=== PATIENT | female | born 1925 | race Caucasian/White ===

== ENCOUNTER → 2016-08-17 | Outpatient (CLI) | payer OTHER, BC ==
[~2016-08-17] MED LIST: ALENDRONATE SOD70 MG PO; ASPIRIN325 MG PO; ATROVENT 00.5 MG/2.5 IH; CALCIUM 600 +1 EACH PO; COLACE100 MG PO; COMBIGAN O20 DROP/5 BOTH EYES; CRESTOR10 MG PO; DOXAZOSIN MESYLA4 MG PO; FORTEO20 MICROGR PO; FOSAMAX70 MG PO; K-DUR20 MEQ PO; LASIX20 MG PO; LIPITOR40 MG PO; LISINOPRIL20 MG PO; LO-DOSE ASPIRIN81 M1 PO; LOPRESSOR25 MG PO; LOW DOSE ASPIRI81 M1 PO; METOPROLOL TART25 MG PO; MULTIVITAMIN1 EAC2 PO; NITROSTAT0.4 MG SL; OCUVITE LUTEIN1 EACH; OCUVITE LUTEIN1 EACH PO; PRINIVIL5 MG PO; PROTONIX40 MG PO; SENSIPAR30 MG; SENSIPAR30 MG PO; SPIRIVA1 INHALATI IH; SPIRONOLACTONE25 MG PO; SYMBICORT60 INHALA1; SYMBICORT60 INHALA1 IH; SYNTHROID100 MCG PO; SYNTHROID88 MCG PO; TOPROL XL25 MG PO; TOPROL XL6.25 MG PO; TRAVATAN 050 DROP/2. BOTH EYES; TRAVATAN Z5 ML BOTH EYES; TUMS500 MG PO; VITAMIN D; VITAMIN D1000 UNIT PO; XALATAN2.5 ML BOTH EYES; ZESTRIL,PRINIVI10 MG PO
== END ==
LOC: RAD 08:59
DX: R13.10 Dysphagia, unspecified (principal)
CPT/HCPCS: 74230; 92611 GN; G8996 GN CJ; G8997 GN CJ; G8998 GN CJ